=== PATIENT | female | born 2000 | race American Indian/Alaskan Native ===

== ENCOUNTER 2021-03-06 11:03 | Emergency (ER) | payer OTHER ==
[2021-03-06 12:21] VITALS: BP 102/70
[2021-03-06] MEDS ORDERED: FAMOTIDINE 20 MG TAB PO ONE (12:22)
--- NOTE | 2021-03-06 12:54 | Emergency Department Report ---
ED General Adult HPI - General Chief complaint: Upper Respiratory Infection Stated complaint: COUGH/SORE THROAT Time Seen by Provider: 03/06/21 12:21 Source: patient Mode of arrival: Ambulatory Limitations: No Limitations - History of Present Illness Initial comments: 21-year-old -[place] female patient presents with complaints of chest pain, cough, and intermittent shortness of breath x1 week. She denies any loss of taste or smell and has not been tested or vaccinated for COVID-19. No hemoptysis, fever/chills/sweats, leg pain/swelling, or recent known sick contacts per patient. She has a history of congenital heart defect and GERD. She describes her chest pain as burning. No family history of heart disease per patient. She denies any chest pain at current. Patient does admit to 6-hour car ride approximately 2 to 3 weeks ago and being on control. No history of DVT/PE - Related Data Allergies Allergy/AdvReac Type Severity Reaction Status Date / Time No Known Allergies Allergy Unverified 03/06/21 12:21 ED Review of Systems ROS: Stated complaint: COUGH/SORE THROAT Other details as noted in HPI Constitutional: denies: chills, fever ENT: denies: throat pain Respiratory: cough (mild), shortness of breath Cardiovascular: chest pain Gastrointestinal: denies: abdominal pain, nausea, vomiting Skin: denies: rash, lesions, change in color Neurological: denies: headache ED Physical Exam - General Limitations: No Limitations General appearance: alert, in no apparent distress - Head Head exam: Present: atraumatic, normocephalic - Eye Eye exam: Present: normal appearance. Absent: scleral icterus - Neck Neck exam: Present: normal inspection - Respiratory Respiratory exam: Present: normal lung sounds bilaterally. Absent: respiratory distress - Cardiovascular Cardiovascular Exam: Present: regular rate, normal rhythm. Absent: systolic murmur, diastolic murmur, rubs, gallop - GI/Abdominal GI/Abdominal exam: Present: soft. Absent: tenderness - Extremities Exam Extremities exam: Absent: calf tenderness (No pain or swelling noted to legs bilaterally) - Neurological Exam Neurological exam: Present: alert, oriented X3, normal gait - Psychiatric Psychiatric exam: Present: normal affect, normal mood - Skin Skin exam: Present: warm, dry, intact, normal color. Absent: rash ED Course Vital Signs 03/06/21 12:17 Temperature 98.5 F Pulse Rate 64 Respiratory 16 Rate Blood Pressure 102/70 [Right] O2 Sat by Pulse 99 Oximetry ED Medical Decision Making - Lab Data Result diagrams: 03/06/21 12:58 03/06/21 12:58 - Medical Decision Making 21-year-old -[place] female patient presents with complaints of chest pain, cough, and intermittent shortness of breath x1 week. She denies any loss of taste or smell and has not been tested or vaccinated for COVID-19. No hemoptysis, fever/chills/sweats, leg pain/swelling, or recent known sick contacts per patient. She has a history of congenital heart defect and GERD. She describes her chest pain as burning. No family history of heart disease per patient. She denies any chest pain at current. Patient does admit to 6-hour car ride approximately 2 to 3 weeks ago and being on control. No history of DVT/PE Patient eloped prior to chest x-ray and disposition Critical care attestation.: If time is entered above; I have spent that time in minutes in the direct care of this critically ill patient, excluding procedure time. ED Disposition Clinical Impression: Viral URI with cough Disposition: 07 LEFT AWOL/ELOPED Is pt being admited?: No Condition: Stable Instructions: Viral Respiratory Infection Referrals: PRIMARY CARE, [Primary Care Provider] - 3-5 Days
[2021-03-06 14:04] LABS: Blood Urea Nitrogen 9 mg/dL (7-17); Calcium 9.4 mg/dL (8.4-10.2); Hemolysis Index 6
[2021-03-06 14:09] LABS: Basophils % (Auto) 0.7 % (0.0-1.8); Eosinophils # (Auto) 0.1 K/mm3 (0.0-0.4); Eosinophils % (Auto) 1.5 % (0.0-4.3); Hematocrit 41.5 % (30.3-42.9); Hemoglobin 13.5 gm/dl (10.1-14.3); Lymphocytes # (Auto) 1.6 K/mm3 (1.2-5.4); Lymphocytes % (Auto) 30.1 % (13.4-35.0); Mean Corpuscular HGB Conc 32 % (30-34); Mean Corpuscular Volume 86 fl (79-97); Monocytes # (Auto) 0.5 K/mm3 (0.0-0.8); Monocytes % (Auto) 10.3 % (0.0-7.3); Platelet Count 187 K/mm3 (140-440); Red Blood Count 4.84 M/mm3 (3.65-5.03); Red Cell Distribution Width 13.1 % (13.2-15.2)
[2021-03-06 14:10] LABS: BUN/Creatinine Ratio 15
== END 2021-03-06 19:30 | disposition left against medical advice (07) ==
LOC: ED 11:03
DX: J06.9 Acute upper respiratory infection, unspecified (principal); R05.9 Cough, unspecified
CPT/HCPCS: 36415; 80048; 84703; 85025; 85379; 99283